=== PATIENT | male | born 1940 | race Two or more races ===

== ENCOUNTER 2023-01-21 17:36 | Inpatient (IN) | payer MEDICARE, BC ==
[~2023-01-21] VITALS: Ht 167.6 cm; Wt 79.4 kg
--- NOTE | 2023-01-21 17:50 | NUR ---
[id number] [place], GENERALIZED WEAKNESS W/ MULTIPLE FALLS X 2 DAYS ALSO C/O R KNEE PAIN AND SWELLING FROM GLF. PT IS A&OX4. ATTACHED TO MONITOR, VITALS ARE WITHIN NORMAL LIMITS. WARM BLANKET PROVIDED FOR COMFORT. WAITING MD EASON.
--- NOTE | 2023-01-21 17:51 | NUR ---
DAUGHTER AT BEDSIDE
--- NOTE | 2023-01-21 17:53 | NUR ---
IV ESTABLISHED R AC 20G. LABDS DRAWN AND COLLECTED AT BEDSIDE,
--- NOTE | 2023-01-21 18:03 | NUR ---
PT STATED HE JUST URINATED, PROVIDED URINAL AT BEDSIDE.
[2023-01-21] MEDS ORDERED: ACETAMINOPHEN ES 500 MG TABLET PO ONE (18:30)
[2023-01-21] MEDS ORDERED: IV NS 0.9% 1,000 ML BAG IV ONE (18:30)
[2023-01-21] MEDS ORDERED: IBUPROFEN 600 MG TABLET PO ONE (18:30)
[2023-01-21 18:33] LABS: BASOPHILS % (AUTO) 0.1 % (0.0-2.0); EOSINOPHILS % (AUTO) 0.7 % (0.0-6.0); HEMATOCRIT 37 % (39-51); HEMOGLOBIN 12.5 g/dL (13.5-17.5); LYMPHOCYTES # (AUTO) 0.5 K/uL (0.8-4.8); LYMPHOCYTES % (AUTO) 3.5 % (20.0-44.0); MEAN CORPUSCULAR HGB CONC 33 g/dl (31.0-36.0); MEAN CORPUSCULAR VOLUME 93 fL (80-96); MONOCYTES # (AUTO) 1.1 K/uL (0.1-1.30); MONOCYTES % (AUTO) 8.2 % (2.0-12.0); NEUTROPHILS # (AUTO) 11.8 K/uL (1.8-8.9); NEUTROPHILS % (AUTO) 87.5 % (43.0-81.0); PLATELET COUNT (AUTO) 216 K/uL (150-450); RED BLOOD CELL COUNT(AUTO) 4.01 MIL/uL (4.5-6.0); WHITE BLOOD COUNT (AUTO) 13.5 K/uL (4.3-11.0)
[2023-01-21 18:45] LABS: CARBON DIOXIDE 25 mmol/L (21-32); CHLORIDE 104 mmol/L (98-107); CREATININE 2.4 mg/dL (0.6-1.3); GLUCOSE 118 mg/dL (74-106); POTASSIUM 4.2 mmol/L (3.5-5.1); SODIUM SERUM 139 mmol/L (136-145); UREA NITROGEN, BLOOD 47 mg/dL (7-18)
[2023-01-21 18:56] LABS: ALANINE AMINOTRANSFERASE 39 U/L (12-78); ALBUMIN 3.4 g/dL (3.4-5.0); ALKALINE PHOSPHATASE 86 U/L (46-116); ASPARTATE AMINOTRANSFERASE 28 U/L (15-37); BILIRUBIN,DIRECT 0.1 mg/dL (0.0-0.2); BILIRUBIN,TOTAL 0.5 mg/dL (0.2-1.0); TOTAL PROTEIN, SERUM 7.1 g/dL (6.4-8.2)
[2023-01-21] MEDS ORDERED: ACETAMINOPHEN ES 500 MG TABLET ONE (19:03)
[2023-01-21] MEDS ORDERED: IBUPROFEN 600 MG TABLET ONE (19:04)
--- NOTE | 2023-01-21 19:20 | NUR ---
COVID TEST COLLECTED AND SENT
--- NOTE | 2023-01-21 19:20 | NUR ---
RAPID FLU COLLECTED AND SENT
--- NOTE | 2023-01-21 19:20 | NUR ---
MEAL TRAY PROVIDED
[2023-01-21] MEDS ORDERED: CEFTRIAXONE 1GM BAG (ER ONLY) 1 GM/50 ML PIGGYBACK IV ONE (19:30)
[2023-01-21] MEDS ORDERED: CEFTRIAXONE 1GM BAG (ER ONLY) 50 ML IV ONE (19:39)
--- NOTE | 2023-01-21 19:44 | NUR ---
KARMEN ADAIR ([facility])
--- NOTE | 2023-01-21 20:12 | NUR ---
PT STILL UNABLE TO PROVIDE URINE AT THIS TIME
[2023-01-21] MEDS ORDERED: LIDOCAINE 2% JEL UROJET 10 ML MM ONE (20:22)
--- NOTE | 2023-01-21 20:24 | NUR ---
[facility] PAGED
--- NOTE | 2023-01-21 20:39 | NUR ---
URINE SENT TO LAB
--- NOTE | 2023-01-21 21:21 | NUR ---
115 BED 1
[2023-01-21 21:33] LABS: BILIRUBIN,URINE NEGATIVE (NEGATIVE); COLOR,URINE YELLOW (YELLOW); LEUKOCYTE ESTERASE ,URINE NEGATIVE (NEGATIVE); NITRITE, URINE NEGATIVE (NEGATIVE); PROTEIN,URINE 3+ mg/dl (NEGATIVE); UGLUCOSE NEGATIVE (NEGATIVE); UROBILINOGEN,URINE 0.2 EU/dL (0.2)
--- NOTE | 2023-01-21 21:48 | NUR ---
called for report will call back
[2023-01-21 21:51] LABS: BACTERIA,URINE None seen /HPF (None Seen); MUCUS,URINE Moderate /LPF (None Seen); SQUAMOUS EPITHELIAL CELL,UR None Seen /HPF (None Seen); WBC,URINE NONE SEEN /HPF (0-3)
--- NOTE | 2023-01-21 22:00 | NUR ---
REPORT GIVEN TO MAXIMILIANO
--- NOTE | 2023-01-21 22:37 | NUR ---
PT TRANSPORTED TO ROOM 115 ON CARDIAC PER ACLS IN STABLE CONDITION
--- NOTE | 2023-01-21 23:30 | NUR ---
PLAYGROUND SUPERVISORENGLISH PROFESSOR NOTES; RECEIVED PATIENT VIA GURNEY ON STABLE CONDITION, AWAKE AND TRANSFER TO ROOM, PATIENT IS A/O X2-3 ABLE TO RESPONSE DURING ASSESSMENT, ON [id number] AT 3LPM SATURATING WELL, SKIN ASSESSMENT DONE AND DOCUMENTED, INVENTORIED DONE AND DOCUMENTED, IV LINE AT RAC#20 SL, PATIENT ON TEL MONITOR- SR-78 NO SYMPTOMS WAS OBSERVED, PATIENT WAS ORIENTED TO ROOM REMIND TO USE THE CALL LIGHTS WHEN NEEDED ASSISTANCE, BED PLACE IN LOW POSITION, CALL LIGHTS WITHIN REACH, ON MONITORING FOR FALL, PATIENT KEPT CLEAN AND DRY ALL NEEDS MET WILL CONTINUE TO MONITOR.
[2023-01-22] VITALS: BP 152/82
[2023-01-22] MEDS ORDERED: ACETAMINOPHEN 325 MG TABLET PO PRN
[2023-01-22] MEDS ORDERED: ONDANSETRON HCL/PF 4 MG/2 ML VIAL IVP PRN
[2023-01-22] MEDS ORDERED: Z GUARD REMEDY 4 OZ OINT TP PRN
[2023-01-22] MEDS ORDERED: DOXYCYCLINE 100 MG in IV D5W 100 ML IV SCH ×2
[2023-01-22] MEDS ORDERED: DOXYCYCLINE 100 MG VIAL ONE (03:16)
[2023-01-22 04:00] VITALS: BP 158/85
[2023-01-22 05:51] LABS: BASOPHILS % (AUTO) 0.2 % (0.0-2.0); EOSINOPHILS % (AUTO) 0.1 % (0.0-6.0); HEMATOCRIT 37 % (39-51); HEMOGLOBIN 12.6 g/dL (13.5-17.5); LYMPHOCYTES # (AUTO) 0.2 K/uL (0.8-4.8); MEAN CORPUSCULAR HGB CONC 34 g/dl (31.0-36.0); MEAN CORPUSCULAR VOLUME 93 fL (80-96); MONOCYTES # (AUTO) 0.7 K/uL (0.1-1.30); MONOCYTES % (AUTO) 6.2 % (2.0-12.0); NEUTROPHILS % (AUTO) 91.5 % (43.0-81.0); PLATELET COUNT (AUTO) 195 K/uL (150-450); RED BLOOD CELL COUNT(AUTO) 4.03 MIL/uL (4.5-6.0); WHITE BLOOD COUNT (AUTO) 10.9 K/uL (4.3-11.0)
--- NOTE | 2023-01-22 06:31 | NUR ---
FURNACE DOOR TENDER CLOSING NOTES; PATIENT SLEEP IN BED COMFORTABLY, AROUSABLE TO VERBAL STIMULI, BED IN LOW POSITION CALL LIGHTS WITHIN REACH, NO COMPLAIN OF PAIN AND DISCOMFORT AT THIS TIME, ON ROOM AIR SATURATING WELL ON IV LINE ON RAC#20 SL,PATIENT ON TELE MONITOR- SR-77, PATIENT KEPT CLEAN AND DRY ALL NEEDS MET ENDORSE TO INCOMING SHIFT,
[2023-01-22 06:39] LABS: CHOLESTEROL 163 mg/dL (<200); FERRITIN 196 ng/mL (8-388); HDL CHOLESTEROL 59 mg/dL (40-60); LDL 90 mg/dL (0-99); THYROID STIMULATING HORMONE 0.968 uIU/mL (0.358-3.74); TRIGLYCERIDES 112 mg/dL (30-150)
[2023-01-22 06:45] LABS: CALCIUM, SERUM 8.8 mg/dL (8.5-10.1); CARBON DIOXIDE 26 mmol/L (21-32); CHLORIDE 106 mmol/L (98-107); CREATININE 2.4 mg/dL (0.6-1.3); GLUCOSE 118 mg/dL (74-106); MAGNESIUM 2.3 mg/dL (1.8-2.4); PHOSPHORUS 2.8 mg/dL (2.5-4.9); POTASSIUM 4.2 mmol/L (3.5-5.1); SODIUM SERUM 142 mmol/L (136-145); UREA NITROGEN, BLOOD 41 mg/dL (7-18)
--- NOTE | 2023-01-22 07:00 | NUR ---
RECEIVED REPORT FROM NIGHTSHIFT RN. PATIENT ON 2 LITERS NASAL CANULA. BREATHING EVENLY AND UNLABORED. SINUS RYTHYM ON TELE MONITOR AT THIS TIME. IV ACCESS MAINTAINED. FEVER OF 102.2 NOTEDSURING ROUTINE VITAL SIGNS CHECK, WILL ADMINISTER PRN TYLENOL. SAFETY MEASURES IMPLEMENTED, WILL CONTINUE PLAN OF CARE AND ANTICIPATE NEEDS.
[2023-01-22 07:08] LABS: IRON, SERUM 13 ug/dl (50-175); TOTAL IRON BINDING CAPACITY 196 ug/dl (250-450)
[2023-01-22] MEDS: PANTOPRAZOLE 40 MG TABLET.DR PO SCH (07:39)
[2023-01-22 08:00] VITALS: BP 159/68
[2023-01-22] MEDS ORDERED: FINA5TAB11 PO (08:09)
[2023-01-22] MEDS ORDERED: NIFE90TA61 PO (08:09)
[2023-01-22] MEDS ORDERED: LABE200T5 PO (08:09)
[2023-01-22] MEDS ORDERED: DOXA8TAB79 PO (08:09)
[2023-01-22] MEDS ORDERED: BUPR75TA8 PO (08:09)
[2023-01-22] MEDS ORDERED: DULO60CA64 PO (08:09)
[2023-01-22] MEDS: HEPARIN SODIUM, PORCINE 5000 UNITS/1 ML VIAL SQ SCH ×2 (08:36→20:47)
--- NOTE | 2023-01-22 08:40 | NUR ---
TEMPERATURE ON RECHECK 100.1. ICE PACKS APPLIED TO BILATERAL AXILLAE AND FOREHEAD. WILL CONTINUE TO ASSESS AND MAKE INTERVENTIONS NEEDED.
--- NOTE | 2023-01-22 09:40 | NUR ---
TEMP ON RECHECK 98 DEGREES
[2023-01-22] MEDS ORDERED: CLONIDINE HCL 0.1 MG TABLET PO PRN (10:00)
[2023-01-22] MEDS ORDERED: FUROSEMIDE 40 MG/4 ML VIAL IV ONE (10:00)
[2023-01-22] MEDS: LABETALOL HCL (100MG) 100 MG TABLET PO SCH ×2 (10:20→20:48)
[2023-01-22 12:00] VITALS: BP 128/80
[2023-01-22] MEDS: DOXYCYCLINE 100 MG in IV D5W 100 ML IV SCH (15:04)
[2023-01-22] MEDS ORDERED: IV NS 0.9% 250 ML IV PRN (15:30)
[2023-01-22 16:00] VITALS: BP 134/78
[2023-01-22] MEDS: DOXAZOSIN MESYLATE (4 MG) 4 MG TABLET PO SCH (17:36)
--- NOTE | 2023-01-22 18:57 | NUR ---
PATIENT REMAINS IN STABLE CONDITION. CURRENTLY ASLEEP BREATHING EVENLY AND UNLABORED. SINUS RYTHYM ON BEDSIDE MONITOR. SAFETY MEASURES IMPLEMENTED. HAND OFF REPORT TO BE GIVEN TO NIGHTSHIFT RN FOR CONTINUATION OF CARE.
--- NOTE | 2023-01-22 19:40 | NUR ---
GEOMETRY TEACHER NOTES RECEIVED LYING COMFORTABLY ON BED,A/O X3-4,BREATHING NON LABORED.SR 0N TELE MONITOR.NOTED BILATERAL KNEE SWELLING AND BRUISE,WITH OPEN SKIN.IVF ON TKO RATE INFUSING ON RIGHT AC SALINE LOCK VIA IV PUMP.FALL PRECAUTION OBSERVED,BED ON LOW POSITION AND LOCKED,BED ALARM.CALL LIGHT IN REACH,NEEDS ANTICIPATED.
[2023-01-22 20:00] VITALS: BP 157/83
[2023-01-22] MEDS: CEFTRIAXONE 2 G in IV D5W 100 ML IV SCH (20:13)
[2023-01-23] VITALS: BP 147/89
[2023-01-23] MEDS: DOXYCYCLINE 100 MG in IV D5W 100 ML IV SCH (02:23)
[2023-01-23 04:00] VITALS: BP 137/54
--- NOTE | 2023-01-23 06:22 | NUR ---
CLIENT SUCCESS SPECIALIST NOTES SR ON TELE MONITOR.SLEPT WELL AT NIGHT.IV ABX INFUSED WITHOUT ADVERSE REACTION NOTED.NO FALL,NO INJURY,FREQUENT CHECK Q 15 MINUTES FOR SAFETY INITIATED,IN NO ACUTE DISTRESS.WILL ENDORSE TO DAY NURSE FOR JUAN.
[2023-01-23 07:04] LABS: BASOPHILS % (AUTO) 0.1 % (0.0-2.0); EOSINOPHILS % (AUTO) 1.3 % (0.0-6.0); HEMATOCRIT 37 % (39-51); HEMOGLOBIN 12.3 g/dL (13.5-17.5); LYMPHOCYTES # (AUTO) 0.8 K/uL (0.8-4.8); LYMPHOCYTES % (AUTO) 11.1 % (20.0-44.0); MEAN CORPUSCULAR HGB CONC 33 g/dl (31.0-36.0); MEAN CORPUSCULAR VOLUME 94 fL (80-96); MONOCYTES % (AUTO) 14.2 % (2.0-12.0); NEUTROPHILS # (AUTO) 5.2 K/uL (1.8-8.9); NEUTROPHILS % (AUTO) 73.3 % (43.0-81.0); PLATELET COUNT (AUTO) 207 K/uL (150-450); RED BLOOD CELL COUNT(AUTO) 3.95 MIL/uL (4.5-6.0); WHITE BLOOD COUNT (AUTO) 7.1 K/uL (4.3-11.0)
[2023-01-23 07:16] LABS: CALCIUM, SERUM 8.3 mg/dL (8.5-10.1); CARBON DIOXIDE 26 mmol/L (21-32); CHLORIDE 105 mmol/L (98-107); CREATININE 2.5 mg/dL (0.6-1.3); GLUCOSE 113 mg/dL (74-106); POTASSIUM 3.3 mmol/L (3.5-5.1); SODIUM SERUM 139 mmol/L (136-145); UREA NITROGEN, BLOOD 42 mg/dL (7-18)
[2023-01-23 08:00] VITALS: BP 146/81
[2023-01-23] MEDS: buPROPion 75 MG TABLET PO SCH (08:04)
[2023-01-23] MEDS: DULOXETINE HCL 30 MG CAPSULE.DR PO SCH (08:04)
[2023-01-23] MEDS: LABETALOL HCL (100MG) 100 MG TABLET PO SCH ×2 (08:04→20:09)
[2023-01-23] MEDS: PANTOPRAZOLE 40 MG TABLET.DR PO SCH (08:04)
[2023-01-23] MEDS: FINASTERIDE (5 MG) 5 MG TABLET PO SCH (08:04)
[2023-01-23] MEDS: NIFEdipine XL (30MG) 30 MG TAB PO SCH (08:04)
[2023-01-23] MEDS: HEPARIN SODIUM, PORCINE 5000 UNITS/1 ML VIAL SQ SCH ×2 (08:06→20:13)
[2023-01-23] MEDS ORDERED: CLONIDINE HCL 0.1 MG TABLET PO PRN (09:00)
[2023-01-23] MEDS ORDERED: VANCOMYCIN 1.25 GM in IV D5W 250 ML IV SCH (09:00)
[2023-01-23] MEDS: POTASSIUM CHLORIDE 20 MEQ TAB.PRT.SR PO SCH (09:09)
[2023-01-23 12:00] VITALS: BP 144/80
[2023-01-23 16:00] VITALS: BP 145/86
[2023-01-23] MEDS: DOXAZOSIN MESYLATE (4 MG) 4 MG TABLET PO SCH (17:13)
--- NOTE | 2023-01-23 19:30 | NUR ---
RN OPENING NOTE RECEIVED PATIENT IN BED, AWAKE, ALERT AND ORIENTED X3. ABLE TO MAKE NEEDS KNOWN. AFEBRILE AND NOT IN ANY FORM OF ACUTE DISTRESS. ON O2 INHALATION VIA NASAL CANNULA AT 2LPM. WITH IV ACCESS ON RIGHT AC 20G-SL. ON TELE MONITORING WITH CURRENT READING OF SR. SAFETY MEASURES IN PLACE. KEPT BED IN LOCKED AND IN LOW POSITION. SIDE RAILS UP X2. ADVISED TO USE THE CALL LIGHT WHEN IN NEED OF ASSISTANCE.
[2023-01-23 20:00] VITALS: BP 141/82
[2023-01-23] MEDS: CEFTRIAXONE 2 G in IV D5W 100 ML IV SCH (20:09)
[2023-01-24] VITALS: BP 140/77
[2023-01-24 04:00] VITALS: BP 126/69
[2023-01-24 06:26] LABS: CALCIUM, SERUM 8.6 mg/dL (8.5-10.1); CARBON DIOXIDE 26 mmol/L (21-32); CHLORIDE 106 mmol/L (98-107); CREATININE 2.2 mg/dL (0.6-1.3); GLUCOSE 115 mg/dL (74-106); POTASSIUM 3.8 mmol/L (3.5-5.1); SODIUM SERUM 142 mmol/L (136-145); UREA NITROGEN, BLOOD 40 mg/dL (7-18)
--- NOTE | 2023-01-24 06:30 | NUR ---
ISOLATION WASHER CLOSING NOTE PATIENT IN BED, ASLEEP BUT EASY TO AROUSE AND RESPONSIVE. ABLE TO MAKE NEEDS KNOWN. AFEBRILE AND NOT IN ANY FORM OF ACUTE DISTRESS. ON O2 INHALATION VIA NASAL CANNULA AT 2LPM. WITH IV ACCESS ON RIGHT AC 20G-SL. ON TELE MONITORING WITH CURRENT READING OF SR 62. MEDICATED ORDERED. CONTINUOUS ON IV ATB, MONITORED FOR ANY ADVERSE REACTION. SAFETY MEASURES IN PLACE. KEPT BED IN LOCKED AND IN LOW POSITION. SIDE RAILS UP X2. ADVISED TO USE THE CALL LIGHT WHEN IN NEED OF ASSISTANCE. ALL NURSING NEEDS ATTENDED. ENDORSED TO INCOMING SHIFT FOR CONTINUITY OF CARE.
[2023-01-24] MEDS: PANTOPRAZOLE 40 MG TABLET.DR PO SCH (08:24)
--- NOTE | 2023-01-24 08:34 | NUR ---
VP OPENING NOTE PATIENT AWAKE IN BED, A/OX3. ABLE TO MAKE NEEDS KNOWN. AFEBRILE AND NOT IN ANY FORM OF ACUTE DISTRESS. ON O2 INHALATION VIA NASAL CANNULA AT 2LPM. WITH IV ACCESS ON RIGHT AC 20G-SL. ON TELE MONITORING WITH CURRENT READING OF SB 57, SAFETY MEASURES IN PLACE. KEPT BED IN LOCKED AND IN LOW POSITION. SIDE RAILS UP X2. ADVISED TO USE THE CALL LIGHT WHEN IN NEED OF ASSISTANCE. ALL NURSING NEEDS ATTENDED. WILL CONTINUE TO MONITOR.
[2023-01-24] MEDS: NIFEdipine XL (30MG) 30 MG TAB PO SCH (09:21)
[2023-01-24] MEDS: DULOXETINE HCL 30 MG CAPSULE.DR PO SCH (09:22)
[2023-01-24] MEDS: LABETALOL HCL (100MG) 100 MG TABLET PO SCH ×2 (09:22→21:21)
[2023-01-24] MEDS: POTASSIUM CHLORIDE 20 MEQ TAB.PRT.SR PO SCH (09:23)
[2023-01-24] MEDS: FINASTERIDE (5 MG) 5 MG TABLET PO SCH (09:23)
[2023-01-24] MEDS: HEPARIN SODIUM, PORCINE 5000 UNITS/1 ML VIAL SQ SCH ×2 (09:25→21:22)
[2023-01-24] MEDS: buPROPion 75 MG TABLET PO SCH (09:28)
[2023-01-24 11:09] VITALS: BP 141/86
[2023-01-24 12:24] VITALS: BP 131/77
[2023-01-24 16:12] VITALS: BP 139/80
[2023-01-24] MEDS: DOXAZOSIN MESYLATE (4 MG) 4 MG TABLET PO SCH (17:07)
--- NOTE | 2023-01-24 18:36 | NUR ---
RN CLOSING NOTES PATIENT AWAKE IN BED,A/OX3. ABLE TO MAKE NEEDS KNOWN. AFEBRILE AND NOT IN ANY FORM OF ACUTE DISTRESS. ON O2 INHALATION VIA NASAL CANNULA AT 2LPM. WITH IV ACCESS ON RIGHT AC 20G-SL. ON TELE MONITORING WITH CURRENT READING OF SR 63, ALL MEDS GIVEN, REMAINS STABLE ALL THROUGHOUT THE SHIFT. SAFETY MEASURES IN PLACE. KEPT BED IN LOCKED AND IN LOW POSITION. SIDE RAILS UP X2. ADVISED TO USE THE CALL LIGHT WHEN IN NEED OF ASSISTANCE. ALL NURSING NEEDS ATTENDED. ENDORSED TO NIGHT NURSE.
[2023-01-24 20:00] VITALS: BP 122/77
--- NOTE | 2023-01-24 20:00 | NUR ---
INTELLIGENCE SUPPORT OFFICER OPENING NOTE RECEIVED PATIENT AWAKE IN BED, A/OX3. ABLE TO MAKE NEEDS KNOWN.ON 2L O2 VIA NC JANAY WELL SAT 98% NO SIGN SOB/DISTRESS NOTED,WITH IV ACCESS ON RIGHT AC 20G-SL.SAFETY MEASURES IN PLACE. KEPT BED IN LOCKED AND IN LOW POSITION. SIDE RAILS UP X2.CALL LIGHT WITHIN REACH,WILL CONTINUE TO MONITOR.
[2023-01-24] MEDS ORDERED: VANCOMYCIN HCL 0.75 GM in IV D5W 250 ML IV SCH (21:00)
[2023-01-24] MEDS: CEFTRIAXONE 2 G in IV D5W 100 ML IV SCH (21:21)
[2023-01-24] MEDS ORDERED: TEMAZEPAM 7.5 MG CAPSULE PO PRN (23:30)
[2023-01-25] VITALS: BP 152/76
[2023-01-25 04:00] VITALS: BP 132/75
--- NOTE | 2023-01-25 06:26 | NUR ---
RN CLOSING NOTE; PT IN BED AWAKED AOX3 ABLE TO MAKE NEEDS KNOWN,ON RM AIR JANAY WELL SAT 98%.NO SOB/DISTRESS NOTED,NO COMPLAINED OF PAIN/DISCOMFORT DURING SHIFT,IV ACCESS ON RAC 20G SL.INTACT AND PATENT,DUE MEDS GIVEN ORDER,ALL NEEDS ATTENDED,SAFETY MEASURE IN PLACE,CALL LIGHT WITHIN REACH,WILL ENDORSED TO NEXT SHIFT
[2023-01-25 07:27] LABS: CALCIUM, SERUM 8.8 mg/dL (8.5-10.1); CARBON DIOXIDE 26 mmol/L (21-32); CHLORIDE 107 mmol/L (98-107); CREATININE 2.1 mg/dL (0.6-1.3); GLUCOSE 109 mg/dL (74-106); POTASSIUM 3.9 mmol/L (3.5-5.1); SODIUM SERUM 142 mmol/L (136-145); UREA NITROGEN, BLOOD 36 mg/dL (7-18)
--- NOTE | 2023-01-25 07:30 | NUR ---
METAL ROOFER AM NOTE PATIENT AWAKE IN BED, A/OX3. ABLE TO MAKE NEEDS KNOWN. AFEBRILE AND NOT IN ANY FORM OF ACUTE DISTRESS. ON 2L O2 VIA NASAL CANNULA ROOM AIR, O2 SAT 95%. NOT DISTRESS, NO SOB, SR HR 70 ON MONITOR, DENIES CHEST DISCOMFORT, WITH IV ACCESS ON RIGHT AC 20G-SL FLUSHES WELL , SITE CLEAR. USES URINAL, ON CARDIAC DIET. SEE NURSING FLOWSHEET FOR SKIN ISSUES. SWOLLEN RIGHT KNEE. SAFETY MEASURES IN PLACE. KEPT BED IN LOCKED AND IN LOW POSITION. SIDE RAILS UP X2. ADVISED TO USE THE CALL LIGHT WHEN IN NEED OF ASSISTANCE. WILL CONTINUE TO MONITOR.
[2023-01-25] MEDS: PANTOPRAZOLE 40 MG TABLET.DR PO SCH (07:52)
[2023-01-25 08:00] VITALS: BP 136/75
[2023-01-25] MEDS: buPROPion 75 MG TABLET PO SCH (09:20)
[2023-01-25] MEDS: POTASSIUM CHLORIDE 20 MEQ TAB.PRT.SR PO SCH (09:20)
[2023-01-25] MEDS: NIFEdipine XL (30MG) 30 MG TAB PO SCH (09:21)
[2023-01-25] MEDS: DULOXETINE HCL 30 MG CAPSULE.DR PO SCH (09:22)
[2023-01-25] MEDS: LABETALOL HCL (100MG) 100 MG TABLET PO SCH (09:22)
[2023-01-25] MEDS: FINASTERIDE (5 MG) 5 MG TABLET PO SCH (09:22)
[2023-01-25] MEDS: HEPARIN SODIUM, PORCINE 5000 UNITS/1 ML VIAL SQ SCH (09:23)
--- NOTE | 2023-01-25 09:30 | NUR ---
RN NOTES DUE MEDS GIVEN
[2023-01-25] MEDS ORDERED: VANC750F2 IV (10:49)
[2023-01-25 12:00] VITALS: BP 142/82
--- NOTE | 2023-01-25 14:07 | NUR ---
RN NOTES REPORT GIVEN SAMMIE AT FACILITY.
--- NOTE | 2023-01-25 14:38 | NUR ---
RN NOTES PATIENT DISCHARGED [facility] TODAY PER MD, STABLE CONDITION, PROVIDED DC INSTRUCTION, HEALTH TEACHINGS AND MED RECON LIST. RAC 20G IN PLACE, FLUSHES WELL, SITE CLEAR. PT TO CONTINUE IV VANCOMYCIN 750 MG DAILY FOR 7 DAYS MORE. ALL BELONGINGS CHECKED AND RETURNED, ALL PAPER WORKS SIGNED.PATIENT TO FOLLOW UP WITH PCP IN 1 WEEK OR PER FACILITY PROTOCOL. REFUSED PHOTO OF SKIN ISSUES.. PATIENT PICKED UP BY [facility] AND WILL TRANSPORT PATIENT TO FACILITY. REPORT GIVEN TO SAMMIE AT FACILITY EARLIER. PATIENT WILL GO TO ROOM 31 C
[2023-01-26 09:08] LABS: *ANA ANTI-CENTROMERE B AB <0.2 AI (0.0-0.9); *ANA ANTI-DNA(DS) AB, QN 2 IU/mL (0-9); *ANA ANTI-JO-1 <0.2 AI (0.0-0.9); *ANA ANTICHROMATIN ANTIBODY <0.2 AI (0.0-0.9); *ANA RNP ANTIBODIES <0.2 AI (0.0-0.9); *ANA SJOGREN'S ANTI-SS-A <0.2 AI (0.0-0.9); *ANA SJOGREN'S ANTI-SS-B <0.2 AI (0.0-0.9); *ANAANTI-SCLERODERMA-70 AB <0.2 AI (0.0-0.9); *ANASMITH AB <0.2 AI (0.0-0.9)
== END 2023-01-25 15:03 | DRG 871 ==
LOC: ER 19:17 → TELE1 21:37
PROVIDERS: ADMIT Nurse Practitioner Family; ATTEND Internal Medicine
DX: A41.89 Other specified sepsis (principal); I50.33 Acute on chronic diastolic (congestive) heart failure; N17.0 Acute kidney failure with tubular necrosis; L03.115 Cellulitis of right lower limb; I13.0 Hypertensive heart and chronic kidney disease with heart failure and stage 1 through stage 4 chronic kidney disease, or unspecified chronic kidney disease; N18.9 Chronic kidney disease, unspecified; N40.0 Benign prostatic hyperplasia without lower urinary tract symptoms; R29.6 Repeated falls; W18.30XA Fall on same level, unspecified, initial encounter; Y92.129 Unspecified place in nursing home as the place of occurrence of the external cause; M16.0 Bilateral primary osteoarthritis of hip; N28.1 Cyst of kidney, acquired; D63.8 Anemia in other chronic diseases classified elsewhere; E86.1 Hypovolemia; I27.20 Pulmonary hypertension, unspecified; I70.0 Atherosclerosis of aorta
CPT/HCPCS: 36415; 70450-TC; 71045-TC; 73502; 73564-TC; 76770-TC; 80048-TC; 80061-TC; 80076-TC; 81001; 82607-TC; 82728-TC; 83540-TC; 83605-TC; 83735-TC; 83880; 84100-TC; 84443-TC; 84484-TC; 85025-TC; 85730-TC; 86225; 86235; 86706; 86803; 87040-TC; 87081-TC; 87086-TC; 93307-TC; 97110-TC; 97116-TC; 97530-TC; A4223; C9803; G0378; J0696; J1644; J1940; J3370; J3490; J7040; J7050; J7060